=== PATIENT | female | born 1980 | race Caucasian/White ===

== ENCOUNTER 2016-12-18 09:08 | Emergency (ER) | payer MEDICAID ==
[~2016-12-18] VITALS: Ht 167.6 cm; Wt 67.6 kg
[2016-12-18 09:13] VITALS: BP 132/68; PULSE 110; RESP 22; TEMP 98.5; O2SAT 98
--- NOTE | 2016-12-18 09:15 | NUR ---
Pt placed to ER bed 07 and to gown. Pt report given to ZOFIA Whittington.
--- NOTE | 2016-12-18 09:25 | NUR ---
Patient in stable condition, alert and oriented x4. Faroese speaking, visitor present to translate. Patient states that on Saturday she began having heart palpitations and felt shaky, last night began to get chills and weakness, and this AM a rash from knees up was noticed. Red rash with vesicles noted on body from knees up, including forehead. No pain on rash per patient. Denies nausea/vomiting, denies cough. No other complaints/injuries per patient or noted.
--- NOTE | 2016-12-18 09:30 | NUR ---
Dr. Jefferson at bedside.
[2016-12-18] MEDS ORDERED: NACL 0.9% 1,000 ML IV ONE (09:32)
[2016-12-18 09:59] LABS: BILIRUBIN,URINE 1+ (NEGATIVE); BLOOD, URINE 2+ (NEGATIVE); CLARITY/URINE HAZY (CLEAR); COLOR,URINE AMBER (YELLOW); GLUCOSE,URINE NEGATIVE (NEGATIVE); KETONES,URINE 2+ (NEGATIVE); LEUKOCYTE ESTERASE ,URINE NEGATIVE (NEGATIVE); NITRITE, URINE NEGATIVE (NEGATIVE); PH,URINE 6.5 (5.0-8.0); PROTEIN URINE 2+ (NEGATIVE)
[2016-12-18 10:06] LABS: BACTERIA,URINE FEW /HPF (None Seen); MUCUS,URINE 1+ /LPF (None Seen); WBC,URINE 0-3 /HPF (0-3)
[2016-12-18 10:15] LABS: HEMOGLOBIN 14.9 g/dL (12.0-16.0); MEAN CORPUSCULAR HEMOGLOBIN 29 pg (27-31); MEAN CORPUSCULAR HGB CONC 34 % (32-36); MEAN CORPUSCULAR VOLUME 85 fL (79.0-98.0); PLATELET COUNT (AUTO) 147 K/uL (130-430); RED BLOOD CELL COUNT(AUTO) 5.18 MIL/uL (4.2-6.2); RED CELL DISTRIBUTION WIDTH 13.8 % (9.0-15.0)
[2016-12-18 10:17] LABS: WHITE BLOOD COUNT (AUTO) 2.9 K/uL (4.8-10.8)
[2016-12-18 10:26] LABS: CALCIUM 8.8 mg/dL (8.4-11.0); CREATININE 0.86 mg/dL (0.55-1.30); POTASSIUM 3.5 mmol/L (3.5-5.1)
[2016-12-18 10:42] LABS: ALBUMIN 3.8 g/dL (3.4-4.8); FREE T4 (FREE THYROXINE) 0.8 ng/dL (0.6-1.6); THYROID STIMULATING HORMONE 1.51 uIu/mL (0.34-4.82); TOTAL PROTEIN, SERUM 7.9 g/dL (6.4-8.3)
[2016-12-18 10:57] LABS: ATYPICAL LYMPHOCYTES % 0 % (0-0); BAND % (MANUAL) 8 % (0-6); BASOPHILS % (MANUAL) 0 % (0-2); EOSINOPHILS % (MANUAL) 0 % (0-7); LYMPHOCYTES % (MANUAL) 14 % (20-46); MONOCYTES % (MANUAL) 4 % (0-11)
[2016-12-18 10:58] LABS: ERYTHROCYTE SEDIMENTATION RATE 11 MM/HR (0-20)
--- NOTE | 2016-12-18 11:30 | NUR ---
Patient resting in bed, stable condition.
[2016-12-18 12:00] VITALS: BP 130/75; PULSE 89; RESP 18; TEMP 97.6; O2SAT 99
--- NOTE | 2016-12-18 12:00 | NUR ---
Patient given written and verbal discharge instructions and verbalizes understanding. ER MD discussed with patient the results and treatment provided. Patient in stable condition. ID arm band removed. IV catheter removed intact and dressing applied, no active bleeding. Rx of hydrocortisone cream given. Patient educated on pain management and to follow up with PMD in 2 days. Opportunity for questions provided and answered.
== END 2016-12-18 12:00 | disposition home or self-care (01) ==
LOC: SED 09:08
DX: B09 Unspecified viral infection characterized by skin and mucous membrane lesions (principal); R00.2 Palpitations; R53.1 Weakness
CPT/HCPCS: 36415; 74000; 80053; 81000; 81025; 83690; 84439; 84443; 85007; 85027; 85651; 93005; 96360; 99285; J7030

== ENCOUNTER 2017-11-14 19:10 | Emergency (ER) | payer MEDICAID ==
[~2017-11-14] VITALS: Ht 165.1 cm; Wt 73.5 kg
[2017-11-14 20:12] VITALS: BP_SYST 133
--- NOTE | 2017-11-14 22:40 | NUR ---
Patient to ER CHAIR to gown for evaluation. Side rails up. Report given to ZOFIA COLE.
--- NOTE | 2017-11-14 22:42 | NUR ---
Pt brought in by in stable condition. Pt c/o right lower toothache that is worsening x3 days. Pt stated that pain is radiating up to her temporal area. Pt stated that she has not seen dentist yet. -sob -chest pain. No acute distress noted at this time, will continue to monitor
--- NOTE | 2017-11-14 22:45 | NUR ---
[facility] examining patient.
[2017-11-14 23:20] VITALS: BP_SYST 133
--- NOTE | 2017-11-14 23:20 | NUR ---
Patient given written and verbal discharge instructions and verbalizes understanding. ER MD AQUINO discussed with patient the results and treatment provided. Patient in stable condition. ID arm band removed. Rx of IBUPROFEN AND PERCOCET given. Patient educated on pain management and to follow up with PMD. Pain Scale 2/10. Opportunity for questions provided and answered.
== END 2017-11-14 23:20 | disposition home or self-care (01) ==
LOC: SED 19:10
DX: K08.89 Other specified disorders of teeth and supporting structures (principal)
CPT/HCPCS: 99283